=== PATIENT | female | born 2000 | race Caucasian/White ===

== ENCOUNTER 2020-04-19 19:22 | Emergency (ER) | payer OTHER, SELFPAY ==
[~2020-04-19] VITALS: Ht 154.9 cm; Wt 58.5 kg
[2020-04-19 19:23] VITALS: BP 116/82; Ht 154.9 cm; Wt 58.5 kg
== END 2020-04-19 20:35 | disposition home or self-care (01) ==
LOC: ED 19:22
DX: U07.1 COVID-19 (principal)
CPT/HCPCS: U0003